=== PATIENT | female | born 1950 | race Caucasian/White ===

== ENCOUNTER → 2022-07-25 12:05 | Outpatient (CLI) | payer BC, SELFPAY ==
--- NOTE | 2022-07-25 12:15 | DI.RAD.S_ITS ---
PROCEDURE: XR ABDOMEN 1V INDICATIONS: NEPHROLITHIASIS TECHNIQUE: One view of the abdomen acquired. COMPARISON: Outside Film, CT, CT ABDOMEN PELVIS WITHOUT CONTRAST, 08/17/2021, 11:48. FINDINGS: Surgical changes and devices: None. Bowel: Bowel gas pattern is normal. Soft tissues: Stone fragments are seen involving the mid left kidney, with the largest group measuring 2 cm. Visualized solid organ contours appear normal in size. Bones: No suspicious bony lesions. Age-appropriate bony degenerative changes are seen. IMPRESSION: Nonobstructing left kidney stone fragments seen. Dictated by: Johny Doshi M.D. on 07/25/2022 at 11:52 Approved by: Johny Doshi M.D. on 07/25/2022 at 11:52
== END ==
PROVIDERS: Referring Provider Nurse Practitioner Family; Visit Provider Nurse Practitioner Family
DX: N20.0 Calculus of kidney (principal)
CPT/HCPCS: 74018